=== PATIENT | male | born 1950 | race American Indian/Alaskan Native ===

== ENCOUNTER 2021-03-09 16:04 | Observation (INO) | payer MEDICARE ==
--- NOTE | 2021-03-09 18:26 | Event Note ---
ED Screening Note Date of service: 03/09/21 Time: 18:25 ED Screening Note: Patient presents with complaints of weakness and 19 pound weight loss over the past few weeks He also complains of chest pain yesterday and an irregular heartbeat noted by his doctor today Patient states he was informed to come to the ED Past medical history includes asthma He denies shortness of breath or swelling This initial assessment/diagnostic orders/clinical plan/treatment(s) is/are subject to change based on patients health status, clinical progression and re- assessment by fellow clinical providers in the ED. Further treatment and workup at subsequent clinical providers discretion. Patient/guardian urged not to elope from the ED as their condition may be serious if not clinically assessed and managed. Initial orders include: Labs EKG Chest x-ray
[2021-03-09 18:47] LABS: Hematocrit 41.6 % (35.5-45.6); Hemoglobin 14.2 gm/dl (11.8-15.2); Lymphocytes # (Auto) 1.4 K/mm3 (1.2-5.4); Lymphocytes % (Auto) 40.7 % (13.4-35.0); Mean Corpuscular HGB Conc 34 % (32-34); Mean Corpuscular Volume 87 fl (84-94); Monocytes # (Auto) 0.3 K/mm3 (0.0-0.8); Monocytes % (Auto) 9.1 % (0.0-7.3); Platelet Count 242 K/mm3 (140-440); Red Blood Count 4.75 M/mm3 (3.65-5.03); Red Cell Distribution Width 16.3 % (13.2-15.2)
[2021-03-09] MEDS ORDERED: ACETAMINOPHEN 325 MG TAB PO ONE (18:56)
[2021-03-09] MEDS ORDERED: LACTATED RINGERS 500 ML IV ONE (18:56)
--- NOTE | 2021-03-09 18:58 | Emergency Department Report ---
ED General Adult HPI - General Chief complaint: Weakness Stated complaint: GENERAL WEAKNESS X 1MONTH PUI?: No Time Seen by Provider: 03/09/21 18:25 Source: patient, RN notes reviewed Mode of arrival: Ambulatory Limitations: No Limitations - History of Present Illness Initial comments: The patient was evaluated in the emergency department for symptoms described in the history of present illness. He/she was evaluated in the context of the global COVID-19 pandemic, which necessitated consideration that the patient might be at risk for infection with the virus that causes COVID-19. Institutional protocols and algorithms that pertain to the evaluation of patients at risk for COVID-19 are in a state of rapid change based on information released by regulatory bodies including the CDC and federal and state organizations. These policies and algorithms were followed during the patient's care in the emergency department. Please note that these policies, procedures and recommendations changed on a rapid basis. This is a 70-year-old gentleman. He is not known to myself previously. His primary care doctor is Dr. Lucio The patient is sent to the emergency room by his primary care doctor for evaluation. The patient presents to the ER today with a complaint of unintentional 19 pound weight loss, over the past few weeks, history of bloody stool, now resolved (reports unremarkable colonoscopy within the past 10 years) and sensation of nonspecified chest pressure yesterday, which is resolved with belching. The patient currently denies headache, neck pain, testicular pain, urinary symptoms, hematemesis and bright red blood per rectum. He denies travel, surgery, immobilization. He reports sensation of generalized weakness. He denies Covid symptomatology. He does not take prescription medications at this time. He is chest pain-free at this time. There is no personal family history of DVT, PE, or CAD that he is aware of. Location: chest, abdomen Consistency: now resolved Improves with: rest, other (Belching) - Related Data Allergies Allergy/AdvReac Type Severity Reaction Status Date / Time Penicillins Allergy Unknown Verified 03/09/21 16:11 ED Review of Systems ROS: Stated complaint: GENERAL WEAKNESS X 1MONTH Other details as noted in HPI Constitutional: malaise, weakness. denies: fever Eyes: denies: eye discharge ENT: denies: epistaxis Respiratory: denies: cough Cardiovascular: chest pain (Chest pressure yesterday) Gastrointestinal: abdominal pain (Abdominal pressure and), other (Bloody bowel movements yesterday) Genitourinary: denies: dysuria Musculoskeletal: myalgia Neurological: weakness Hematological/Lymphatic: denies: easy bleeding ED Past Medical Hx - Past Medical History Previous Medical History?: Yes Hx Asthma: Yes - Surgical History Past Surgical History?: No ED Physical Exam - General Limitations: No Limitations General appearance: alert, in no apparent distress - Head Head exam: Present: atraumatic, normocephalic - Eye Eye exam: Present: normal appearance, EOMI. Absent: nystagmus - ENT ENT exam: Present: normal exam, normal orophraynx, mucous membranes moist, normal external ear exam - Neck Neck exam: Present: normal inspection, full ROM. Absent: tenderness, meningismus - Respiratory Respiratory exam: Present: normal lung sounds bilaterally. Absent: respiratory distress, wheezes, rales, rhonchi, stridor, decreased breath sounds - Cardiovascular Cardiovascular Exam: Present: regular rate, normal rhythm, normal heart sounds. Absent: bradycardia, tachycardia, irregular rhythm, systolic murmur, diastolic murmur, rubs, gallop - GI/Abdominal GI/Abdominal exam: Present: soft. Absent: distended, tenderness, guarding, rebound, rigid, pulsatile mass - Rectal Rectal exam: Present: normal inspection, heme (-) stool, other (Chaperoned by Agueda Ramey). Absent: heme (+) stool, black stool, bloody stool - Extremities Exam Extremities exam: Present: normal inspection, full ROM, other (2+ pulses noted in the bilateral upper and lower extremities. There is no palpable cord. negative Homans sign. Muscular compartments are soft. The pelvis is stable.). Absent: pedal edema, calf tenderness - Back Exam Back exam: Present: normal inspection, full ROM. Absent: tenderness, CVA tenderness (R), CVA tenderness (L), paraspinal tenderness, vertebral tenderness - Neurological Exam Neurological exam: Present: alert, oriented X3, normal gait, other (No facial droop. Tongue midline. Extraocular movements intact bilaterally. Facial sensation intact to light touch in V1, V2, V3 distribution bilaterally. 5 and a 5 strength in 4 extremities. Sensation intact to light touch in 4 extremities.). Absent: motor sensory deficit - Psychiatric Psychiatric exam: Present: normal affect, normal mood - Skin Skin exam: Present: warm, dry, intact, normal color. Absent: rash ED Course Vital Signs 03/09/21 16:11 Temperature 98 F Pulse Rate 60 Respiratory 16 Rate Blood Pressure 124/66 [Left] O2 Sat by Pulse 96 Oximetry - Reevaluation(s) Reevaluation #1: 03/09/21 22:14 Differential diagnosis, including not limited to: Cancer, tumor, malignancy, pulmonary embolism, pneumonia, urinary tract infection, thyroid derangement GERD, gastritis, hiatal hernia, normal Assessment and plan: 70-year-old gentleman, who was referred to the emergency room by his primary care doctor, with a complaint of unintentional 19 pound weight loss, generalized malaise and fatigue, chest tightness yesterday which is improved after belching. Advanced age reviewed and appreciated. Patient is chest pain-free for nearly 20 hours. Troponin negative x1; as per the [employer] clinical policy, acute myocardial infarction ruled out with 1 set of troponin/cardiac enzymes. Given unintentional weight loss, vague nature of symptoms, advanced age, we will obtain CT scan of the chest, abdomen and pelvis to evaluate patient's anatomy. We will reassess after initial data points. He has no blood in his rectal examination. I discussed this plan of care with the patient. He articulated understanding. All questions answered. 03/10/21 00:29 CT scan of the chest shows multivessel coronary artery disease. No pulmonary embolism is identified. CT scan of the abdomen pelvis is negative for acute findings. Patient moderate risk for major adverse cardiac event as per heart score. His EKG is markedly abnormal. Given advanced age, history, EKG morphology, coronary artery disease demonstrated on CT scan of the chest, I recommend admission to the medical service for cardiac risk stratification. The patient is agreeable to this plan of care. Hospital physician, Dr. Flash Jones to admit to [facility] All questions answered with the patient ED Medical Decision Making - Lab Data Result diagrams: 03/09/21 18:25 03/09/21 18:25 Vital Signs 03/09/21 16:11 Temperature 98 F Pulse Rate 60 Respiratory 16 Rate Blood Pressure 124/66 [Left] O2 Sat by Pulse 96 Oximetry Lab Results 03/09/21 03/09/21 03/09/21 Range/Units 18:25 18:25 19:03 WBC 3.4 L (4.5-11.0) K/mm3 RBC 4.75 (3.65-5.03) M/mm3 Hgb 14.2 (11.8-15.2) gm/dl Hct 41.6 (35.5-45.6) % MCV 87 (84-94) fl MCH 30 (28-32) pg MCHC 34 (32-34) % RDW 16.3 H (13.2-15.2) % Plt Count 242 (140-440) K/mm3 Lymph % (Auto) 40.7 H (13.4-35.0) % [place] % (Auto) 9.1 H (0.0-7.3) % Eos % (Auto) 0.0 (0.0-4.3) % Baso % (Auto) 1.0 (0.0-1.8) % Lymph # (Auto) 1.4 (1.2-5.4) K/mm3 [place] # (Auto) 0.3 (0.0-0.8) K/mm3 Eos # (Auto) 0.0 (0.0-0.4) K/mm3 Baso # (Auto) 0.0 (0.0-0.1) K/mm3 Seg Neutrophils % 49.2 (40.0-70.0) % Seg Neutrophils # 1.7 L (1.8-7.7) K/mm3 PT 13.0 (12.2-14.9) Sec. INR 0.88 (0.87-1.13) D-Dimer 212.77 (0-234) ng/mlDDU Sodium 140 (137-145) mmol/L Potassium 3.9 (3.6-5.0) mmol/L Chloride 101.8 (98-107) mmol/L Carbon Dioxide 26 (22-30) mmol/L Anion Gap 16 mmol/L BUN 9 (9-20) mg/dL Creatinine 1.1 (0.8-1.3) mg/dL Estimated GFR > 60 ml/min BUN/Creatinine Ratio 8 % Glucose 82 (75-100) mg/dL Calcium 10.0 (8.4-10.2) mg/dL Magnesium (1.7-2.3) mg/dL Total Bilirubin 0.50 (0.1-1.2) mg/dL AST 17 (5-40) units/L ALT 7 (7-56) units/L Alkaline Phosphatase 69 (35-129) units/L Total Creatine Kinase (55-170) units/L Troponin T < 0.010 (0.00-0.029) ng/mL Total Protein 8.3 H (6.3-8.2) g/dL Albumin 4.4 (3.9-5) g/dL Albumin/Globulin Ratio 1.1 % TSH (0.270-4.200) mlU/mL Urine Color (Yellow) Urine Turbidity (Clear) Urine pH (5.0-7.0) Ur Specific [place] (1.003-1.030) Urine Protein (Negative) mg/dL Urine Glucose (UA) (Negative) mg/dL Urine Ketones (Negative) mg/dL Urine Blood (Negative) Urine Nitrite (Negative) Urine Bilirubin (Negative) Urine Urobilinogen (<2.0) mg/dL Ur Leukocyte Esterase (Negative) Urine WBC (Auto) (0.0-6.0) /HPF Urine RBC (Auto) (0.0-6.0) /HPF U Epithel Cells (Auto) (0-13.0) /HPF Urine Mucus /HPF 03/09/21 03/09/21 03/09/21 Range/Units 19:03 19:03 21:25 WBC (4.5-11.0) K/mm3 RBC (3.65-5.03) M/mm3 Hgb (11.8-15.2) gm/dl Hct (35.5-45.6) % MCV (84-94) fl MCH (28-32) pg MCHC (32-34) % RDW (13.2-15.2) % Plt Count (140-440) K/mm3 Lymph % (Auto) (13.4-35.0) % [place] % (Auto) (0.0-7.3) % Eos % (Auto) (0.0-4.3) % Baso % (Auto) (0.0-1.8) % Lymph # (Auto) (1.2-5.4) K/mm3 [place] # (Auto) (0.0-0.8) K/mm3 Eos # (Auto) (0.0-0.4) K/mm3 Baso # (Auto) (0.0-0.1) K/mm3 Seg Neutrophils % (40.0-70.0) % Seg Neutrophils # (1.8-7.7) K/mm3 PT (12.2-14.9) Sec. INR (0.87-1.13) D-Dimer (0-234) ng/mlDDU Sodium (137-145) mmol/L Potassium (3.6-5.0) mmol/L Chloride (98-107) mmol/L Carbon Dioxide (22-30) mmol/L Anion Gap mmol/L BUN (9-20) mg/dL Creatinine (0.8-1.3) mg/dL Estimated GFR ml/min BUN/Creatinine Ratio % Glucose (75-100) mg/dL Calcium (8.4-10.2) mg/dL Magnesium 2.00 (1.7-2.3) mg/dL Total Bilirubin (0.1-1.2) mg/dL AST (5-40) units/L ALT (7-56) units/L Alkaline Phosphatase (35-129) units/L Total Creatine Kinase 120 (55-170) units/L Troponin T (0.00-0.029) ng/mL Total Protein (6.3-8.2) g/dL Albumin (3.9-5) g/dL Albumin/Globulin Ratio % TSH 3.080 (0.270-4.200) mlU/mL Urine Color Yellow (Yellow) Urine Turbidity Clear (Clear) Urine pH 5.0 (5.0-7.0) Ur Specific [place] 1.021 (1.003-1.030) Urine Protein <15 mg/dl (Negative) mg/dL Urine Glucose (UA) Neg (Negative) mg/dL Urine Ketones Tr (Negative) mg/dL Urine Blood Sm (Negative) Urine Nitrite Neg (Negative) Urine Bilirubin Neg (Negative) Urine Urobilinogen 2.0 (<2.0) mg/dL Ur Leukocyte Esterase Neg (Negative) Urine WBC (Auto) 2.0 (0.0-6.0) /HPF Urine RBC (Auto) 5.0 (0.0-6.0) /HPF U Epithel Cells (Auto) < 1.0 (0-13.0) /HPF Urine Mucus Few /HPF - EKG Data -: EKG Interpreted by Ok EKG shows normal: sinus rhythm Rate: normal - EKG Data 03/09/21 22:13 EKG #1 is interpreted at 19: 25 Sinus rhythm, bradycardia, rate 49 bpm. Normal axis, high left ventricular voltage/left ventricular hypertrophy, lateral T wave abnormalities. This is an abnormal EKG. This is not a STEMI. - Radiology Data Radiology results: pending, report reviewed, image reviewed CHEST 2 VIEWS INDICATION / CLINICAL INFORMATION: chest pain. COMPARISON: None available. FINDINGS: SUPPORT DEVICES: None. HEART / MEDIASTINUM: No significant abnormality. LUNGS / PLEURA: No significant pulmonary or pleural abnormality. No pneumothorax. ADDITIONAL FINDINGS: No significant additional findings. IMPRESSION: 1. No acute findings. Signer Name: Pedro Hunt MD Signed: 03/09/2021 6:22 PM Workstation Name: [id number] CTA CHEST WITH CONTRAST INDICATION / CLINICAL INFORMATION: Central and left- sided chest pain. Suspect cancer.. TECHNIQUE: Axial CT images were obtained through the chest after injection of IV contrast. 3 plane MIP and/or 3D reconstructions were produced. All CT scans at this location are performed using CT dose reduction for ALARA by means of automated exposure control. COMPARISON: None available. FINDINGS: PULMONARY ARTERIES: No pulmonary emboli. THORACIC AORTA: No significant abnormality. HEART: Mildly enlarged CORONARY ART PAVEL CALCIFICATION: Multivessel MEDIASTINUM / BK: No significant abnormality. PLEURA: No pleural effusion. No pneumothorax. LUNGS: No acute air space or interstitial disease. ADDITIONAL FINDINGS: None. UPPER ABDOMEN: No acute findings. SKELETAL STRUCTURES: No significant osseous abnormality. IMPRESSION: 1. No CT evidence for pulmonary embolism. 2. No acute intrathoracic findings. 3. Cardiomegaly with multivessel CAD. Signer Name: Cem Rich MD Signed: 03/09/2021 9:[address] ABDOMEN AND PELVIS WITH CONTRAST INDICATION / CLINICAL INFORMATION: Unintentional weight loss, bloody bowel movements. TECHNIQUE: Axial CT images were obtained through the abdomen and pelvis after IV contrast. All CT scans at this location are performed using CT dose reduction for ALARA by means of automa karen exposure control. COMPARISON: None available. FINDINGS: LOWER CHEST: No significant abnormality. LIVER: No significant abnormality GALLBLADDER: No significant abnormality BILE DUCTS: No significant abnormality. PANCREAS: No significant abnormality. SPLEEN: No significant abnormality. ADRENALS: No significant abnormality. RIGHT KIDNEY / URETER: No significant abnormality. LEFT KIDNEY / URETER: No significant abnormality. STOMACH / SMALL BOWEL: No significant abnormality. COLON: Large amount of gas noted throughout the transverse colon. No definite focal abnormality of the colon. APPENDIX: No significant abnormality. PERITONEUM: No free fluid. No free air. No fluid collection. LYMPH NODES: No significant adenopathy. AORTA / ARTERIES: Moderate atherosclerotic calcification without acute abnormality. IVC / VEINS: No significant abnormality. URINARY BLADDER: Decompressed REPRODUCTIVE ORGANS: No significant abnormality. ADDITIONAL FINDINGS: None. SKELETAL SYSTEM: Multilevel degenerative changes of the thoracolumbar spine IMPRESSION: 1. No acute abnormality. 2. Large amount of gas noted throughout the transverse colon. No focal irregularity of the colon is identified. 3. Other chronic findings as above. Signer Name: Cem Rich MD Signed: 03/09/2021 9:17 PM Critical care attestation.: If time is entered above; I have spent that time in minutes in the direct care of this critically ill patient, excluding procedure time. ED Disposition Clinical Impression: Coronary artery disease, Abdominal pain, Abnormal EKG Disposition: 09 ADMITTED INPATIENT Is pt being admited?: Yes Condition: Good Referrals: PRIMARY CARE, [Primary Care Provider] - 3-5 Days Heart Score - HEART Score History: Slightly suspicious EKG: Non-specific Age: > 65 Risk factors: > 3 risk factors or hx of atherosclerotic disease Troponin: < normal limit HEART Score: 5 - EKG Read Time Time EKG Completed: 19:25 EKG Read Time: 19:25 - Critical Actions Critical Actions: 4-6 pts:12-16.6% risk of adverse cardiac event. Should be admi tted
[2021-03-09 19:05] LABS: Alanine Aminotransferase 7 units/L (7-56); Albumin 4.4 g/dL (3.9-5); BUN/Creatinine Ratio 8; Blood Urea Nitrogen 9 mg/dL (9-20); Hemolysis Index 13
[2021-03-09 19:23] LABS: INR 0.88 (0.87-1.13)
--- NOTE | 2021-03-09 19:26 | XRay Report ---
CHEST 2 VIEWS INDICATION / CLINICAL INFORMATION: chest pain. COMPARISON: None available. FINDINGS: SUPPORT DEVICES: None. HEART / MEDIASTINUM: No significant abnormality. LUNGS / PLEURA: No significant pulmonary or pleural abnormality. No pneumothorax. ADDITIONAL FINDINGS: No significant additional findings. IMPRESSION: 1. No acute findings. Signer Name: Pedro Hunt MD Signed: 03/09/2021 7:22 PM Workstation Name: [id number]
[2021-03-09 21:46] LABS: Bilirubin,Urine NEG (Negative); Blood,Urine SM (Negative); Color,Urine Yellow (Yellow); Mucus,Urine FEW /HPF; Protein,Urine <15 mg/dL mg/dL (Negative)
--- NOTE | 2021-03-09 22:22 | Cat Scan Report ---
CT ABDOMEN AND PELVIS WITH CONTRAST INDICATION / CLINICAL INFORMATION: Unintentional weight loss, bloody bowel movements. TECHNIQUE: Axial CT images were obtained through the abdomen and pelvis after IV contrast. All CT sc ans at this location are performed using CT dose reduction for ALARA by means of automated exposure c ontrol. COMPARISON: None available. FINDINGS: LOWER CHEST: No significant abnormality. LIVER: No significant abnormality GALLBLADDER: No significant abnormality BILE DUCTS: No significant abnormality. PANCREAS: No significant abnormality. SPLEEN: No significant abnormality. ADRENALS: No significant abnormality. RIGHT KIDNEY / URETER: No significant abnormality. LEFT KIDNEY / URETER: No significant abnormality. STOMACH / SMALL BOWEL: No significant abnormality. COLON: Large amount of gas noted throughout the transverse colon. No definite focal abnormality of th e colon. APPENDIX: No significant abnormality. PERITONEUM: No free fluid. No free air. No fluid collection. LYMPH NODES: No significant adenopathy. AORTA / ARTERIES: Moderate atherosclerotic calcification without acute abnormality. IVC / VEINS: No significant abnormality. URINARY BLADDER: Decompressed REPRODUCTIVE ORGANS: No significant abnormality. ADDITIONAL FINDINGS: None. SKELETAL SYSTEM: Multilevel degenerative changes of the thoracolumbar spine IMPRESSION: 1. No acute abnormality. 2. Large amount of gas noted throughout the transverse colon. No focal irregularity of the colon is identified. 3. Other chronic findings as above. Signer Name: Cem Rich MD Signed: 03/09/2021 10:17 PM Workstation Name: [id number]
--- NOTE | 2021-03-09 22:25 | Cat Scan Report ---
CTA CHEST WITH CONTRAST INDICATION / CLINICAL INFORMATION: Central and left-sided chest pain. Suspect cancer.. TECHNIQUE: Axial CT images were obtained through the chest after injection of IV contrast. 3 plane PA P and/or 3D reconstructions were produced. All CT scans at this location are performed using CT dose reduction for ALARA by means of automated exposure control. COMPARISON: None available. FINDINGS: PULMONARY ARTERIES: No pulmonary emboli. THORACIC AORTA: No significant abnormality. HEART: Mildly enlarged CORONARY ARTERY CALCIFICATION: Multivessel MEDIASTINUM / BK: No significant abnormality. PLEURA: No pleural effusion. No pneumothorax. LUNGS: No acute air space or interstitial disease. ADDITIONAL FINDINGS: None. UPPER ABDOMEN: No acute findings. SKELETAL STRUCTURES: No significant osseous abnormality. IMPRESSION: 1. No CT evidence for pulmonary embolism. 2. No acute intrathoracic findings. 3. Cardiomegaly with multivessel CAD. Signer Name: Cem Rich MD Signed: 03/09/2021 10:21 PM Workstation Name: [id number]
[2021-03-10] MEDS ORDERED: ASPIRIN 325 MG TAB PO ONE (00:31)
[2021-03-10] MEDS ORDERED: NITROGLYCERIN 0.4 MG TAB SUBL SL PRN ×2 (00:31→01:09)
[2021-03-10] MEDS ORDERED: ACETAMINOPHEN 325 MG TAB PO PRN (01:09)
[2021-03-10] MEDS ORDERED: MORPHINE 4 MG/1 ML INJ IV PRN (01:09)
[2021-03-10] MEDS ORDERED: ONDANSETRON 4 MG/2 ML INJ IV PRN (01:09)
[2021-03-10] MEDS ORDERED: traMADol 50 MG TAB PO PRN (01:09)
[2021-03-10] MEDS ORDERED: MAGNESIUM HYDROXIDE (MOM) ORAL LIQD UDC PO PRN (01:09)
--- NOTE | 2021-03-10 01:23 | History and Physical Report ---
History of Present Illness Date of examination: 03/10/21 Date of admission: 03/10/2021 Chief complaint: Chest Pain History of present illness: 70-year-old male with past medical history of asthma presents to the emergency room today complaining of chest pain. Pain felt like pressure and has been ongoing over the past 24 hours. He denies any radiation of the pain, no known exacerbating factor. However pain improved after belching. He also indicates he has had unintentional weight loss over the past few weeks. He denies any abdominal pain, no nausea vomiting, no headache or dizziness and no diaphoresis. Work-up in the emergency room today as so far been unremarkable except for some nonspecific T wave abnormalities on the EKG.. Past History Past Medical History: other (Asthma) Past Surgical History: No surgical history Social history: no significant social history Family history: no significant family history Medications and Allergies Allergies Allergy/AdvReac Type Severity Reaction Status Date / Time Penicillins Allergy Unknown Verified 03/09/21 16:11 Active Meds: Active Medications Acetaminophen (Acetaminophen 325 Mg Tab) 650 mg PO Q4H PRN PRN Reason: Pain MILD(1-3)/Fever >100.5/JULIAN Aspirin (Aspirin Ec 325 Mg Tab) 325 mg PO QDAY LADONNA Magnesium Hydroxide (Magnesium Hydroxide (Mom) Oral Liqd Udc) 30 ml PO Q4H PRN PRN Reason: Constipation Morphine Sulfate (Morphine 4 Mg/1 Ml Inj) 4 mg IV Q4H PRN PRN Reason: Pain , Severe (7-10) Nitroglycerin (Nitroglycerin 0.4 Mg Tab Subl) 0.4 mg SL .Q5MIN PRN PRN Reason: Chest Pain Nitroglycerin (Nitroglycerin 0.4 Mg Tab Subl) 0.4 mg SL Q5M PRN PRN Reason: Chest Pain Ondansetron HCl (Ondansetron 4 Mg/2 Ml Inj) 4 mg IV Q8H PRN PRN Reason: Nausea And Vomiting Sodium Chloride (Sodium Chloride 0.9% 10 Ml Flush Syringe) 10 ml IV BID LADONNA Sodium Chloride (Sodium Chloride 0.9% 10 Ml Flush Syringe) 10 ml IV PRN PRN PRN Reason: LINE FLUSH Sodium Chloride (Sodium Chloride 0.9% 10 Ml Flush Syringe) 10 ml IV PRN PRN PRN Reason: LINE FLUSH Tramadol HCl (Tramadol 50 Mg Tab) 50 mg PO Q6H PRN PRN Reason: Pain, Moderate (4-6) Review of Systems Constitutional: weight loss, weakness, no fever, no chills Ears, nose, mouth and throat: no nasal congestion, no sore throat Cardiovascular: no chest pain, no palpitations Respiratory: no cough, no shortness of breath Gastrointestinal: no abdominal pain, no nausea, no vomiting, no diarrhea Genitourinary Male: no dysuria, no hematuria, no flank pain, no nocturia Musculoskeletal: no neck pain, no low back pain Integumentary: no rash, no pruritis Neurological: no headaches, no confusion Psychiatric: no anxiety, no depression Endocrine: no polyphagia, no polydipsia, no polyuria, no nocturia Exam - Constitutional Vitals: Temp Pulse Resp BP Pulse Ox 98 F 60 16 124/66 96 03/09/21 16:11 03/09/21 16:11 03/09/21 16:11 03/09/21 16:11 03/09/21 16:11 General appearance: Present: no acute distress, well-nourished - EENT Eyes: Present: PERRL, EOM intact. Absent: scleral icterus ENT: hearing intact, clear oral mucosa, dentition normal - Neck Neck: Present: supple, normal ROM - Respiratory Respiratory effort: normal Respiratory: bilateral: CTA - Cardiovascular Rhythm: regular Heart Sounds: Present: S1 & S2. Absent: gallop, systolic murmur, diastolic murmur, rub, click - Extremities Extremities: no ischemia, pulses intact, pulses symmetrical, No edema, normal temperature, normal color, Full ROM Peripheral Pulses: within normal limits - Abdominal General gastrointestinal: Present: soft, non-tender, non-distended, normal bowel sounds. Absent: mass - Integumentary Integumentary: Present: clear, warm, dry. Absent: rash - Musculoskeletal Musculoskeletal: strength equal bilaterally - Psychiatric Psychiatric: appropriate mood/affect, intact judgment & insight, memory intact, cooperative - Neurologic Neurologic: CNII-XII intact, no focal deficits, moves all extremities HEART Score - HEART Score History: Slightly suspicious EKG: Non-specific Age: > 65 Risk factors: > 3 risk factors or hx of atherosclerotic disease Troponin: Troponin T < 0.010 ng/mL (0.00-0.029) 03/09/21 18:25 Troponin: < normal limit HEART Score: 5 - Critical Actions Critical Actions: 4-6 pts:12-16.6% risk of adverse cardiac event. Should be admitted Results - Labs CBC & Chem 7: 03/10/21 02:25 03/10/21 02:25 Labs: Abnormal lab results 03/09/21 03/09/21 Range/Units 18:25 18:25 WBC 3.4 L (4.5-11.0) K/mm3 RDW 16.3 H (13.2-15.2) % Lymph % (Auto) 40.7 H (13.4-35.0) % Morgan % (Auto) 9.1 H (0.0-7.3) % Seg Neutrophils # 1.7 L (1.8-7.7) K/mm3 Total Protein 8.3 H (6.3-8.2) g/dL Assessment and Plan - Patient Problems (1) Chest pain Current Visit: Yes Status: Acute Plan to address problem: Patient admitted and placed on telemetry. We will check serial cardiac enzymes. Patient placed on daily aspirin, sublingual nitroglycerin and IV morphine as needed for chest pain. (2) Abnormal EKG Current Visit: Yes Status: Acute Plan to address problem: Will monitor EKG closely. (3) DVT prophylaxis Current Visit: Yes Status: Acute Plan to address problem: Patient placed on subcutaneous heparin. (4) Full code status Current Visit: Yes Status: Acute Plan to address problem: Patient is full code.
[2021-03-10 02:52] LABS: Basophils # (Auto) 0.1 K/mm3 (0.0-0.1); Basophils % (Auto) 1.7 % (0.0-1.8); Eosinophils % (Auto) 0.1 % (0.0-4.3); Hemoglobin 13.5 gm/dl (11.8-15.2); Lymphocytes # (Auto) 1.3 K/mm3 (1.2-5.4); Mean Corpuscular HGB Conc 35 % (32-34); Mean Corpuscular Volume 88 fl (84-94); Monocytes # (Auto) 0.3 K/mm3 (0.0-0.8); Monocytes % (Auto) 9.6 % (0.0-7.3); Platelet Count 195 K/mm3 (140-440); Red Blood Count 4.41 M/mm3 (3.65-5.03); Red Cell Distribution Width 15.9 % (13.2-15.2)
[2021-03-10 03:00] LABS: BUN/Creatinine Ratio 9; Blood Urea Nitrogen 9 mg/dL (9-20); Calcium 9.1 mg/dL (8.4-10.2); Hemolysis Index 33
[2021-03-10] MEDS ORDERED: REGADENOSON 0.4 MG/5 ML INJ IV ONE (08:00)
--- NOTE | 2021-03-10 11:31 | Consultation ---
History of Present Illness Consult date: 03/10/21 Consult reason: chest pain History of present illness: 70-year old M with a history of hypertension, hyperlipidemia, and asthma. No prior cardiac history. Patient presents to this hospital with chest pain. Chest pain is poorly characterized and non-exertional. He has no shortness of breath and denies palpitations. Chest x-ray is negative and a chest CTA showed no evidence of PE. Laboratory studies showed negative troponin measurements. His E CG is sinus rhythm with LVH. Patient was admitted by the hospitalist and ordered to undergo a Lexiscan thallium stress test today. Past History Past Medical History: hypertension, hyperlipidemia, other (Asthma) Past Surgical History: No surgical history Social history: no significant social history Family history: no significant family history Medications and Allergies Allergies Allergy/AdvReac Type Severity Reaction Status Date / Time Penicillins Allergy Shortness Verified 03/10/21 08:22 of Breath Home Medications Medication Instructions Recorded Confirmed Last Taken Type Albuterol Sulfate [Proventil Hfa] 2 puff IH Q6H PRN 03/10/21 03/10/21 Unknown History Ascorbic Acid [Vitamin C] 500 mg PO QAM 03/10/21 03/10/21 03/09/21 History Aspirin [Adult Aspirin] 81 mg PO QAM 03/10/21 03/10/21 03/09/21 History Budesonide/Formoterol Fumarate 2 puff PO BID 03/10/21 03/10/21 03/09/21 History [Symbicort 80-4.5 Mcg Inhaler] Montelukast [Singulair] 10 mg PO QPM 03/10/21 03/10/21 03/09/21 History Simvastatin 10 mg PO QHS 03/10/21 03/10/21 03/09/21 History Active Meds: Active Medications Acetaminophen (Acetaminophen 325 Mg Tab) 650 mg PO Q4H PRN PRN Reason: Pain MILD(1-3)/Fever >100.5/JULIAN Aspirin (Aspirin Ec 325 Mg Tab) 325 mg PO QDAY LADONNA Magnesium Hydroxide (Magnesium Hydroxide (Mom) Oral Liqd Udc) 30 ml PO Q4H PRN PRN Reason: Constipation Morphine Sulfate (Morphine 4 Mg/1 Ml Inj) 4 mg IV Q4H PRN PRN Reason: Pain , Severe (7-10) Nitroglycerin (Nitroglycerin 0.4 Mg Tab Subl) 0.4 mg SL Q5M PRN PRN Reason: Chest Pain Ondansetron HCl (Ondansetron 4 Mg/2 Ml Inj) 4 mg IV Q8H PRN PRN Reason: Nausea And Vomiting Sodium Chloride (Sodium Chloride 0.9% 10 Ml Flush Syringe) 10 ml IV BID LADONNA Sodium Chloride (Sodium Chloride 0.9% 10 Ml Flush Syringe) 10 ml IV PRN PRN PRN Reason: LINE FLUSH Tramadol HCl (Tramadol 50 Mg Tab) 50 mg PO Q6H PRN PRN Reason: Pain, Moderate (4-6) Review of Systems Cardiovascular: chest pain, no palpitations, no edema, no syncope, no shortness of breath Physical Examination Vital Signs Temp Pulse Resp BP Pulse Ox 98 F 60 16 124/66 96 03/09/21 16:11 03/09/21 16:11 03/09/21 16:11 03/09/21 16:11 03/09/21 16:11 General appearance: no acute distress HEENT: Positive: PERRL Neck: Positive: trachea midline Cardiac: Positive: Reg Rate and Rhythm Lungs: Positive: Decreased Breath Sounds Neuro: Positive: Grossly Intact Extremities: Absent: edema Results 03/10/21 02:25 03/10/21 02:25 Cardiac Enzymes 03/09/21 Range/Units 18:25 AST 17 (5-40) units/L Coagulation 03/09/21 Range/Units 19:03 PT 13.0 (12.2-14.9) Sec. INR 0.88 (0.87-1.13) CBC 03/09/21 03/10/21 Range/Units 18:25 02:25 WBC 3.4 L 3.3 L (4.5-11.0) K/mm3 RBC 4.75 4.41 (3.65-5.03) M/mm3 Hgb 14.2 13.5 (11.8-15.2) gm/dl Hct 41.6 39.0 (35.5-45.6) % Plt Count 242 195 (140-440) K/mm3 Lymph # (Auto) 1.4 1.3 (1.2-5.4) K/mm3 [place] # (Auto) 0.3 0.3 (0.0-0.8) K/mm3 Eos # (Auto) 0.0 0.0 (0.0-0.4) K/mm3 Baso # (Auto) 0.0 0.1 (0.0-0.1) K/mm3 Comprehensive Metabolic Panel 03/09/21 03/10/21 Range/Units 18:25 02:25 Sodium 140 138 (137-145) mmol/L Potassium 3.9 3.5 L (3.6-5.0) mmol/L Chloride 101.8 101.7 (98-107) mmol/L Carbon Dioxide 26 26 (22-30) mmol/L BUN 9 9 (9-20) mg/dL Creatinine 1.1 1.0 (0.8-1.3) mg/dL Glucose 82 147 H (75-100) mg/dL Calcium 10.0 9.1 (8.4-10.2) mg/dL AST 17 (5-40) units/L ALT 7 (7-56) units/L Alkaline Phosphatase 69 (35-129) units/L Total Protein 8.3 H (6.3-8.2) g/dL Albumin 4.4 (3.9-5) g/dL Assessment and Plan - Patient Problems (1) Chest pain Current Visit: Yes Status: Acute Plan to address problem: Chest pain is atypical negative troponin measurements and ECG shows sinus rhythm, no acute ST or T wave changes. pt is currently chest pain free. On exam, patient was noted to have active wheezing. We therefore canceled the thallium stress test. Will defer to primary team and pulmonary for management of asthma exacerbation. As an outpatient, once pulmonary status is stable, we will pursue noninvasive ischemia evaluation.
[2021-03-10] MEDS: POTASSIUM CHLORIDE ER 20 MEQ TAB PO STA ×2 (14:54→20:51)
[2021-03-10] MEDS ORDERED: POTASSIUM CHLORIDE ER 20 MEQ TAB PO SCH (15:00)
[2021-03-10] MEDS ORDERED: methylPREDNISolone Sod Succinate 40 MG/1 ML INJ IV SCH (23:45)
--- NOTE | 2021-03-10 23:58 | Event Note ---
Date: 03/10/21 Patient seen and examined 70-year-old male with past medical history of asthma presents to the emergency room with complaining of chest pain. Work-up in the emergency room so far been unremarkable except for some nonspecific T wave abnormalities on the EKG.. Chest x-ray without any infiltrates, CT abdomen pelvis showed gaseous: Without any obstruction, CTA chest suggestive of multivessel coronary artery disease but no acute PE or infiltrates Cardiology consulted, pending echocardiogram, unable to do stress test as patient has extensive wheezes Continue to treat for acute asthma exacerbation, follow cardiac recommendation
[2021-03-11] MEDS ORDERED: IPRATROPIUM/ALBUTEROL SULFATE 3 ML AMPUL.NEB IH SCH (02:00)
[2021-03-11 05:21] LABS: Hematocrit 38.3 % (35.5-45.6); Hemoglobin 13.2 gm/dl (11.8-15.2); Mean Corpuscular HGB Conc 35 % (32-34); Mean Corpuscular Volume 88 fl (84-94); Platelet Count 190 K/mm3 (140-440); Red Blood Count 4.33 M/mm3 (3.65-5.03); Red Cell Distribution Width 16.3 % (13.2-15.2)
[2021-03-11 05:32] LABS: INR 0.88 (0.87-1.13)
[2021-03-11 05:40] LABS: BUN/Creatinine Ratio 11; Blood Urea Nitrogen 11 mg/dL (9-20); Calcium 8.8 mg/dL (8.4-10.2); Hemolysis Index 5
[2021-03-11 07:25] LABS: Total Cells Counted 100
[2021-03-11 07:26] LABS: Platelet Estimate Consistent w Auto
[2021-03-11] MEDS ORDERED: BUDESONIDE 0.5 MG/2 ML NEBU IH SCH (08:00)
[2021-03-11] MEDS ORDERED: ARFORMOTEROL 15 MCG/2 ML NEBU IH SCH (08:00)
[2021-03-11] MEDS ORDERED: ASCORBIC ACID 500 MG TAB PO SCH (10:00)
[2021-03-11] MEDS ORDERED: ASPIRIN EC 325 MG TAB PO SCH (10:00)
[2021-03-11] MEDS ORDERED: ASPIRIN EC 81 MG TAB PO SCH (10:00)
--- NOTE | 2021-03-11 11:30 | Discharge Summary ---
Providers - Providers Date of Admission: 03/10/21 00:31 Date of discharge: 03/11/21 Attending physician: EARL TOLEDO 03/10/21 Consult to Cardiac Rehabilitation [CONS] Routine Reason For Exam: Phase I 03/10/21 01:09 Consult to Cardiology [CONS] Routine Consulting Provider: EVIN KLINE Reason For Exam: chest pain Primary care physician: PORCELAIN ENAMELER Hospitalization Condition: Good Hospital course: 70-year-old male with past medical history of asthma presents to the emergency room with complaining of chest pain. Work-up in the emergency room so far been unremarkable except for some nonspecific T wave abnormalities on the EKG.. Chest x-ray without any infiltrates, CT abdomen pelvis showed gaseous: Without any obstruction, CTA chest suggestive of multivessel coronary artery disease but no acute PE or infiltrates Cardiology consulted, echocardiogram showed ejection fraction 45 to 50%, unable to do stress test as patient has extensive wheezes. He also presented with shortness of breath and wheezing, which appeared consistent with exacerbation of his chronic asthma. Patient was admitted to medical floor with scheduled nebs, iv steroids and supplemental O2 to keep O2 sat at 94%. CXR showed no infiltrates. Patients symptom improved with medical management. Patient was then discharged home in stable condition with outpt f/u with Dr Kline in one week. Disposition: 01 HOME / SELF CARE / HOMELESS Final Discharge Diagnosis (Prints w/discharge instructions): --Acute systolic CHF, mild with EF 45 to 50%. --acute asthma exacerbation Time spent for discharge: 34 minutes Core Measure Documentation - Palliative Care Palliative Care/ Comfort Measures: Not Applicable - Core Measures Any of the following diagnoses?: heart failure - Heart Failure Discharge Requirements SHUN/ARB for LVSD if EF <40%: Not Applicable Beta monroe at discharge: Yes Exam - Physical Exam Narrative exam: GENERAL: well-developed and well-nourished elderly -Dominican male lying on bed appeared to be in no discomfort. HEENT: Normocephalic. Atraumatic. No conjunctival congestion or icterus. Patient has moist mucous membranes. NECK: Supple. Trachea midline. CHEST/LUNGS: Clear to auscultated bilaterally, breathing nonlabored. No wheezes crackles or rhonchi. HEART/CARDIOVASCULAR: Regular in rate and rhythm. S1 and S2 positive. ABDOMEN: Abdomen is soft, nontender. Patient has normal bowel sounds. SKIN: There is no rash. Warm and dry. NEURO: No focal motor deficit. Follows command. MUSCULOSKELETAL: No joint effusion or tenderness. EXTRIMITY: No edema, no cyanosis or clubbing. PSYCH: Cooperative. - Constitutional Vitals: Temp Pulse Resp BP Pulse Ox 98.7 F 66 18 130/69 100 03/11/21 03:30 03/11/21 10:11 03/11/21 10:11 03/11/21 03:30 03/11/21 03:30 Plan Activity: advance as tolerated Weight Bearing Status: Weight Bear as Tolerated Diet: low fat, low salt Additional Instructions: Follow-up with director video in 1 to 2 weeks for outpatient stress test Follow up with: PRIMARY MD ROMELIA [Primary Care Provider] - 3-5 Days EVIN KLINE MD [Staff Physician] - 7 Days Prescriptions: Albuterol Sulfate [Proventil Hfa] 2 puff IH Q6H PRN #1 PRN Reason: Wheezing Montelukast [Singulair] 10 mg PO QPM #30 Budesonide/Formoterol Fumarate [Symbicort 80-4.5 Mcg Inhaler] 2 puff PO BID #1
[2021-03-11 11:32] VITALS: BP 138/75
--- NOTE | 2021-03-11 12:08 | Progress Note ---
Assessment and Plan - Patient Problems (1) Shortness of breath Current Visit: Yes Status: Acute Plan to address problem: Patient presented with shortness of breath and wheezing, which appeared consistent with exacerbation of his chronic asthma. Defer management of his asthma exacerbation to pulmonary and internal medicine. Patient has no cardiac complaints at the current time, he no longer wants to go to [place], but will follow up in our office in 5 to 7 days for continued cardiac management. Subjective Date of service: 03/11/21 Interval history: Patient is comfortable, no cardiac complaints. He presented with shortness of breath and wheezing, reports a history of chronic asthma for which he is on handheld inhalers. He reports routine medical follow-up at [facility] where he has had multiple prior cardiac assessments including a negative cardiac catheterization several years ago, and a normal Lexiscan thallium stress test 2 years ago. On this presentation, his echocardiogram showed left ventricular systolic function at the lower limits of normal, ejection fraction 45 to 50%. Objective Vital Signs Temp Pulse Pulse Resp Resp BP BP 03/11/21 11:15 98 F 63 18 138/75 03/11/21 10:11 66 18 03/11/21 10:00 03/11/21 03:30 98.7 F 56 L 18 130/69 03/10/21 23:30 98.4 F 68 110/68 03/10/21 22:00 53 L 03/10/21 19:37 98.4 F 54 L 18 128/62 03/10/21 17:00 03/10/21 16:17 99.0 F 20 95/47 03/10/21 14:00 64 03/10/21 13:02 118/66 Pulse Ox 03/11/21 11:15 99 03/11/21 10:11 03/11/21 10:00 100 03/11/21 03:30 100 03/10/21 23:30 03/10/21 22:00 03/10/21 19:37 100 03/10/21 17:00 100 03/10/21 16:17 03/10/21 14:00 03/10/21 13:02 - Physical Examination General: Appears Well, No Apparent Distress HEENT: Positive: PERRL Neck: Positive: trachea midline Cardiac: Positive: Reg Rate and Rhythm Lungs: Positive: Decreased Breath Sounds Neuro: Positive: Grossly Intact Abdomen: Positive: Soft Skin: Positive: Clear Extremities: Absent: edema - Labs and Meds Coagulation 03/11/21 Range/Units 04:57 PT 13.0 (12.2-14.9) Sec. INR 0.88 (0.87-1.13) CBC 03/11/21 Range/Units 04:57 WBC 3.0 L (4.5-11.0) K/mm3 RBC 4.33 (3.65-5.03) M/mm3 Hgb 13.2 (11.8-15.2) gm/dl Hct 38.3 (35.5-45.6) % Plt Count 190 (140-440) K/mm3 Comprehensive Metabolic Panel 03/11/21 Range/Units 04:57 Sodium 139 (137-145) mmol/L Potassium 4.1 (3.6-5.0) mmol/L Chloride 99.9 (98-107) mmol/L Carbon Dioxide 26 (22-30) mmol/L BUN 11 (9-20) mg/dL Creatinine 1.0 (0.8-1.3) mg/dL Glucose 84 (75-100) mg/dL Calcium 8.8 (8.4-10.2) mg/dL
[2021-03-11] MEDS ORDERED: MONTELUKAST 10 MG TAB PO SCH (18:00)
[2021-03-11] MEDS ORDERED: NON-FORMULARY EACH (Simvastatin [Simvastatin] 10 MG Tablet) PO SCH (22:00)
[2021-03-11] MEDS ORDERED: PRAVASTATIN 20 MG TAB PO SCH (22:00)
--- NOTE | 2021-03-17 10:21 | Electrocardiograph Report ---
[facility] Test Date: 2021-03-09 Test Time: 19:25:45 Pat Name: BARRY POLK Department: Room: A454 1 Gender: M Tin Assorter: IONA : 1950 Requested By: ISAI PARKER Order Number: [id number] Reading MD: Hadley Samayoa Measurements Intervals [place] Rate: 49 P: 72 AL: 159 QRS: 38 QRSD: 91 T: 117 QT: 395 QTc: 357 Interpretive Statements Sinus bradycardia Probable left ventricular hypertrophy Abnrm T, consider ischemia, anterolateral lds No previous ECG available for comparison Electronically Signed On 03-17-2021 10:21:31 EDT by Hadley Samayoa
--- NOTE | 2021-03-17 14:21 | Electrocardiograph Report ---
[facility] Test Date: 2021-03-10 Test Time: 08:04:56 Pat Name: BARRY POLK Department: Room: A454 1 Gender: M Supervisor Advice: PATRICIA : 1950 Requested By: STACEY AKINS Order Number: [id number] Reading MD: Hadley Samayoa Measurements Intervals [place] Rate: 63 P: 74 [place]: 157 QRS: 9 QRSD: 83 T: 61 QT: 373 QTc: 383 Interpretive Statements Sinus rhythm Nonspecific T abnrm, anterolateral leads Compared to ECG 03/09/2021 19:25:45 No significant change Electronically Signed On 03-17-2021 14:20:46 EDT by Hadley Samayoa
--- NOTE | 2021-03-17 14:25 | Electrocardiograph Report ---
[facility] Test Date: 2021-03-10 Test Time: 12:34:14 Pat Name: BARRY POLK Department: Room: A454 1 Gender: M Cardiac Monitor: PATRICIA : 1950 Requested By: STACEY AKINS Order Number: [id number] Reading MD: Hadley Samayoa Measurements Intervals [place] Rate: 55 P: 19 [place]: 143 QRS: 28 QRSD: 94 T: 174 QT: 415 QTc: 398 Interpretive Statements Sinus rhythm Abnrm T, consider ischemia, anterolateral lds Compared to ECG 03/10/2021 08:04:56 No significant change Electronically Signed On 03-17-2021 14:24:56 EDT by Hadley Samayoa
== END 2021-03-11 14:16 | disposition home or self-care (01) ==
LOC: ED 16:04 → 4A 03-10 00:31
PROVIDERS: ADMIT Internal Medicine Geriatric Medicine; ATTEND Internal Medicine
DX: R07.89 Other chest pain (principal); I25.10 Atherosclerotic heart disease of native coronary artery without angina pectoris; I11.0 Hypertensive heart disease with heart failure; I50.9 Heart failure, unspecified; R94.31 Abnormal electrocardiogram [ECG] [EKG]; R10.9 Unspecified abdominal pain; J45.901 Unspecified asthma with (acute) exacerbation; Z79.82 Long term (current) use of aspirin
CPT/HCPCS: 36415; 71046; 71275; 74177; 80048; 80053; 81001; 82550; 83735; 84443; 84484; 85025; 85379; 85610; 93005; 93306; 94640; 96374; 99285; G0378; J2920; J7120; Q9967; 85007